=== PATIENT | male | born 1960 | race Caucasian/White ===

== ENCOUNTER 2020-09-21 07:29 | Day surgery (SDC) | payer OTHER ==
[~2020-09-21] VITALS: Ht 193 cm; Wt 79.7 kg
[2020-09-21] VITALS (12 sets, daily range): BP systolic 122–138; BP diastolic 63–88
[2020-09-21] MEDS ORDERED: ONDA4TAB6 PO (08:17)
[2020-09-21] MEDS ORDERED: androgel (08:17)
[2020-09-21] MEDS ORDERED: HYDR50CA5 PO (08:17)
[2020-09-21] MEDS ORDERED: SILD50TA PO (08:17)
[2020-09-21] MEDS ORDERED: cefazolin/dext.iso 2gm/100ml 100 ML IV ONE (08:40)
[2020-09-21] MEDS ORDERED: vancomycin/NS 1 GM ADD-VANTAGE 250 ML X 1 DOSE IV ONE (08:40)
[2020-09-21 08:55] LABS: BASOPHILS % (AUTO) 0.5 % (0-1); EOSINOPHILS # (AUTO) 0.1 X10'3 (0-0.9); EOSINOPHILS % (AUTO) 1.2 % (0-6); HEMATOCRIT 44.2 % (42.0-52.0); HEMOGLOBIN 14.7 g/dl (14.0-17.9); LYMPHOCYTES # (AUTO) 2.9 X10'3 (1.1-4.8); LYMPHOCYTES % (AUTO) 32.4 % (21-51); MEAN CORPUSCULAR HEMOGLOBIN 29.7 PG (27.0-31.0); MEAN CORPUSCULAR HGB CONC 33.4 g/dL (33.0-36.5); MEAN PLATELET VOLUME 8.9 FL (7.4-10.4); MONOCYTES # (AUTO) 0.6 X10'3 (0-0.9); MONOCYTES % (AUTO) 7.1 % (2-12); NEUTROPHILS # (AUTO) 5.3 X10'3 (1.8-7.7); NEUTROPHILS % (AUTO) 58.8 % (42-75); PLATELET COUNT 155 X10'3 (140-440); RED BLOOD COUNT 4.97 X10'6 (4.70-6.10); RED CELL DISTRIBUTION WIDTH 14.6 % (11.5-14.5); WHITE BLOOD COUNT 9.1 X10'3 (4.5-11.0)
[2020-09-21 09:06] LABS: ALBUMIN 3.3 G/DL (3.4-5.0); ANION GAP 8 (8-16); BLOOD UREA NITROGEN 15 MG/DL (7-18); BUN/CREATININE RATIO 18.3 (5.4-32.0); CALCIUM 8.2 MG/DL (8.5-10.1); CHLORIDE 107 MMOL/L (99-107); CREATININE 0.82 MG/DL (0.60-1.10); GLUCOSE 95 MG/DL (70-104); POTASSIUM 4.1 MMOL/L (3.5-5.1); SODIUM 142 MMOL/L (135-145); TOTAL CARBON DIOXIDE 26.9 MMOL/L (24-32); eGFR > 90 ML/MIN
[2020-09-21] MEDS ORDERED: fentaNYL/PF 50MCG/1 ML 2ML syringe ONE ×2 (10:15→11:02)
[2020-09-21] MEDS ORDERED: proCHLORperazine 10 MG/2 ml inj ONE (10:15)
[2020-09-21] MEDS ORDERED: midazolam 1 mg/ML 2ml injection ONE ×2 (10:15→11:02)
[2020-09-21] MEDS ORDERED: vancomycin 1,000mg inj ONE (10:16)
[2020-09-21] MEDS ORDERED: LIDOcaine 1% (10mg/ml)w/preservative injection 20ml MDV ONE (10:17)
[2020-09-21] MEDS ORDERED: heparin 1,000unit/ml 10ml vial 10 ML ONE (10:18)
[2020-09-21] MEDS ORDERED: iohexol 350MG/ML 100ml bottle IV ONE (10:18)
== END 2020-09-21 16:50 | disposition home or self-care (01) ==
LOC: SSTAY O 07:29
PROVIDERS: ATTEND Internal Medicine Cardiovascular Disease
DX: I49.5 Sick sinus syndrome (principal); F41.9 Anxiety disorder, unspecified; Z79.899 Other long term (current) drug therapy; Z98.890 Other specified postprocedural states; F17.210 Nicotine dependence, cigarettes, uncomplicated; Z84.1 Family history of disorders of kidney and ureter; Z82.61 Family history of arthritis; Z82.49 Family history of ischemic heart disease and other diseases of the circulatory system
CPT/HCPCS: 33274; 36415; 80048; 83735; 85025; 85610; 93005; 99152; 99153; C1760; C1786; C1894; J0780; J1644; J2001; J2250; J3010; J3370; J7030; Q9967; A4620; A6258; A6449

== ENCOUNTER 2022-12-23 05:56 | Day surgery (SDC) | payer OTHER ==
[2022-12-23] VITALS (9 sets, daily range): BP systolic 119–141; BP diastolic 70–95; PULSE 62–76; RESP 14–18; TEMP 98; O2SAT 97–100
[~2022-12-23] VITALS: Ht 193 cm; Wt 84.9 kg
[~2022-12-23 05:56] MED LIST: HYDR50CA5 PO; ONDA4TAB6 PO; SILD50TA PO; androgel
[2022-12-23] MEDS ORDERED: IBUP-1984 PO (06:21)
[2022-12-23] MEDS ORDERED: diphenhydrAMINE 25mg capsule PO PRN (06:35)
[2022-12-23] MEDS ORDERED: normal saline 1,000 ML IV SCH (06:35)
[2022-12-23] MEDS ORDERED: sodium bicarbonate 1meq/ml syr 150 ML in dextrose 5%-water 1,000 ML IV SCH (06:45)
[2022-12-23 06:48] LABS: BASOPHILS % (AUTO) 0.5 % (0-1); EOSINOPHILS # (AUTO) 0.2 X10'3 (0-0.9); EOSINOPHILS % (AUTO) 1.7 % (0-6); HEMATOCRIT 46.4 % (42.0-52.0); HEMOGLOBIN 15.5 g/dl (14.0-17.9); LYMPHOCYTES # (AUTO) 3.6 X10'3 (1.1-4.8); LYMPHOCYTES % (AUTO) 39.9 % (21-51); MEAN CORPUSCULAR HEMOGLOBIN 30.3 PG (27.0-31.0); MEAN CORPUSCULAR HGB CONC 33.4 g/dL (33.0-36.5); MEAN CORPUSCULAR VOLUME 90.8 FL (78-98); MEAN PLATELET VOLUME 9.4 FL (7.4-10.4); MONOCYTES # (AUTO) 0.8 X10'3 (0-0.9); MONOCYTES % (AUTO) 8.8 % (2-12); NEUTROPHILS # (AUTO) 4.4 X10'3 (1.8-7.7); NEUTROPHILS % (AUTO) 49.1 % (42-75); PLATELET COUNT 140 X10'3 (140-440); RED BLOOD COUNT 5.11 X10'6 (4.70-6.10); RED CELL DISTRIBUTION WIDTH 14.4 % (11.5-14.5); WHITE BLOOD COUNT 9.1 X10'3 (4.5-11.0)
[2022-12-23 06:55] LABS: PROTHROMBIN TIME 10.4 SECONDS (9.0-12.0)
[2022-12-23 07:16] LABS: ALBUMIN 3.8 G/DL (3.4-5.0); ANION GAP 9 (8-16); BLOOD UREA NITROGEN 14 MG/DL (7-18); BUN/CREATININE RATIO 15.9 (10.0-20.0); CHLORIDE 104 MMOL/L (99-107); CREATININE 0.88 MG/DL (0.60-1.10); GLUCOSE 94 MG/DL (70-104); POTASSIUM 3.7 MMOL/L (3.5-5.1); SODIUM 139 MMOL/L (135-145); TOTAL CARBON DIOXIDE 26.5 MMOL/L (24-32); eCRCL 103 ML/MIN; eGFR 87 ML/MIN
[2022-12-23] MEDS ORDERED: fentaNYL/PF 50MCG/1 ML 2ML syringe ONE (08:00)
[2022-12-23] MEDS ORDERED: midazolam 1 mg/ML 2ml injection ONE ×2 (08:00→09:08)
[2022-12-23] MEDS ORDERED: heparin 1,000unit/ml 10ml vial 10 ML ONE (08:00)
[2022-12-23] MEDS ORDERED: LIDOcaine 1% (10mg/ml)w/preservative inj. 20ml MDV ONE (08:00)
[2022-12-23] MEDS ORDERED: iohexol 350MG/ML 100ml bottle IV ONE ×2 (08:00→09:07)
[2022-12-23] MEDS ORDERED: clopidogrel 300mg tablet ONE (09:54)
[2022-12-23] MEDS ORDERED: HYDROcodone/acetaminophen 10/325mg tab PO PRN (10:35)
[2022-12-23] MEDS ORDERED: HYDROcodone/acetaminophen 5mg/325mg tablet PO PRN (10:35)
[2022-12-23] MEDS ORDERED: ondansetron/PF 4mg/2ml inj IV PRN (10:35)
[2022-12-23] MEDS ORDERED: ibuprofen 200mg tablet PO PRN (10:35)
[2022-12-23] MEDS ORDERED: proCHLORperazine 10 MG/2 ml inj IV PRN (10:35)
== END 2022-12-23 13:45 | disposition home or self-care (01) ==
LOC: SSTAY O 05:56
PROVIDERS: ATTEND Internal Medicine Cardiovascular Disease
DX: I70.213 Atherosclerosis of native arteries of extremities with intermittent claudication, bilateral legs (principal); F41.9 Anxiety disorder, unspecified; Z79.1 Long term (current) use of non-steroidal anti-inflammatories (NSAID); Z79.899 Other long term (current) drug therapy
CPT/HCPCS: 36415; 37221; 37226; 75710; 76937; 80048; 83735; 85025; 85610; 93005; 99152; 99153; C1876; J1644; J2250; J3010; J3490; J7030; Q0163; Q9967; A6258; C1725; C1769; C1894; C2623

== ENCOUNTER 2023-01-16 06:10 | Day surgery (SDC) | payer OTHER ==
[2023-01-16] VITALS (8 sets, daily range): BP systolic 130–155; BP diastolic 68–99; PULSE 56–74; RESP 14–16; TEMP 97.9; O2SAT 94–100
[~2023-01-16] VITALS: Ht 193 cm; Wt 84.5 kg
[~2023-01-16 06:10] MED LIST changes: -HYDR50CA5 PO; +IBUP-1984 PO; +LIDOcaine 1% (10mg/ml)w/preservative inj. 20ml MDV ONE; -ONDA4TAB6 PO; -SILD50TA PO; -androgel; +fentaNYL/PF 50MCG/1 ML 2ML syringe ONE; +heparin 1,000 UNITS/NS 500ml 0 ML ONE; +heparin 1,000unit/ml 10ml vial 0 ML ONE; +iohexol 350MG/ML 100ml bottle IV ONE; +midazolam 1 mg/ML 2ml injection ONE
[2023-01-16] MEDS ORDERED: normal saline 1,000 ML IV SCH (06:40)
[2023-01-16] MEDS ORDERED: sodium bicarbonate 1meq/ml syr 150 ML in dextrose 5%-water 1,000 ML IV SCH (06:40)
[2023-01-16] MEDS ORDERED: diphenhydrAMINE 25mg capsule PO PRN (06:40)
[2023-01-16] MEDS ORDERED: CLOP75TA34 PO (06:42)
[2023-01-16] MEDS ORDERED: ATOR40TA72 PO (06:42)
[2023-01-16 07:10] LABS: BASOPHILS # (AUTO) 0.1 X10'3 (0-0.2); BASOPHILS % (AUTO) 1.4 % (0-1); EOSINOPHILS # (AUTO) 0.2 X10'3 (0-0.9); EOSINOPHILS % (AUTO) 1.9 % (0-6); HEMATOCRIT 46.4 % (42.0-52.0); HEMOGLOBIN 15.4 g/dl (14.0-17.9); LYMPHOCYTES # (AUTO) 3.3 X10'3 (1.1-4.8); LYMPHOCYTES % (AUTO) 32.8 % (21-51); MEAN CORPUSCULAR HEMOGLOBIN 30.1 PG (27.0-31.0); MEAN CORPUSCULAR HGB CONC 33.2 g/dL (33.0-36.5); MEAN CORPUSCULAR VOLUME 90.8 FL (78-98); MEAN PLATELET VOLUME 9.3 FL (7.4-10.4); MONOCYTES # (AUTO) 0.8 X10'3 (0-0.9); MONOCYTES % (AUTO) 7.7 % (2-12); NEUTROPHILS # (AUTO) 5.7 X10'3 (1.8-7.7); NEUTROPHILS % (AUTO) 56.2 % (42-75); PLATELET COUNT 179 X10'3 (140-440); RED BLOOD COUNT 5.11 X10'6 (4.70-6.10); RED CELL DISTRIBUTION WIDTH 14.4 % (11.5-14.5); WHITE BLOOD COUNT 10.1 X10'3 (4.5-11.0)
[2023-01-16 07:20] LABS: ALBUMIN 3.5 G/DL (3.4-5.0); ANION GAP 8 (8-16); BLOOD UREA NITROGEN 12 MG/DL (7-18); BUN/CREATININE RATIO 14.8 (10.0-20.0); CHLORIDE 105 MMOL/L (99-107); CREATININE 0.81 MG/DL (0.60-1.10); GLUCOSE 100 MG/DL (70-104); POTASSIUM 3.9 MMOL/L (3.5-5.1); SODIUM 138 MMOL/L (135-145); TOTAL CARBON DIOXIDE 24.7 MMOL/L (24-32); eCRCL 112 ML/MIN; eGFR > 90 ML/MIN
[2023-01-16 07:22] LABS: PROTHROMBIN TIME 10.8 SECONDS (9.0-12.0)
[2023-01-16] MEDS ORDERED: midazolam 1 mg/ML 2ml injection ONE ×3 (10:20→11:11)
[2023-01-16] MEDS ORDERED: proCHLORperazine 10 MG/2 ml inj ONE (10:20)
[2023-01-16] MEDS ORDERED: fentaNYL/PF 50MCG/1 ML 2ML syringe ONE ×2 (10:44→11:11)
[2023-01-16] MEDS ORDERED: HYDROmorphone 1 mg/ml syringe ONE (11:39)
[2023-01-16] MEDS ORDERED: clopidogrel 300mg tablet ONE (11:48)
[2023-01-16] MEDS ORDERED: HYDROcodone/acetaminophen 10/325mg tab PO PRN (12:25)
[2023-01-16] MEDS ORDERED: ondansetron/PF 4mg/2ml inj IV PRN (12:25)
[2023-01-16] MEDS ORDERED: HYDROcodone/acetaminophen 5mg/325mg tablet PO PRN (12:25)
[2023-01-16] MEDS ORDERED: proCHLORperazine 10 MG/2 ml inj IV PRN (12:25)
[2023-01-16] MEDS ORDERED: normal saline 1000ml 1,000 ML IV SCH (12:25)
[2023-01-16] MEDS ORDERED: ketorolac tromethamine 15mg/ml inj. IV ONE (13:35)
== END 2023-01-16 15:30 | disposition home or self-care (01) ==
LOC: SSTAY O 06:10
PROVIDERS: ATTEND Internal Medicine Cardiovascular Disease
DX: I70.211 Atherosclerosis of native arteries of extremities with intermittent claudication, right leg (principal); I70.92 Chronic total occlusion of artery of the extremities; I10 Essential (primary) hypertension; F41.9 Anxiety disorder, unspecified; Z79.82 Long term (current) use of aspirin; Z79.01 Long term (current) use of anticoagulants; Z79.899 Other long term (current) drug therapy; Z95.0 Presence of cardiac pacemaker; Z87.891 Personal history of nicotine dependence
CPT/HCPCS: 36415; 37246; 75710; 80048; 85025; 85610; 93005; 99152; 99153; C1876; J0780; J1170; J1885; J2250; J3010; J7030; Q0163; Q9967; 36245; 96360; A6258; A6402; C1725; C1760; C1769; C1894; C2623; J1644; J3490

== ENCOUNTER 2023-01-19 18:12 | Emergency (ER) | payer OTHER ==
[~2023-01-19] VITALS: Ht 193 cm; Wt 84.8 kg
[~2023-01-19 18:12] MED LIST changes: +ATOR40TA72 PO; +CLOP75TA34 PO; -LIDOcaine 1% (10mg/ml)w/preservative inj. 20ml MDV ONE; -fentaNYL/PF 50MCG/1 ML 2ML syringe ONE; -heparin 1,000 UNITS/NS 500ml 0 ML ONE; -heparin 1,000unit/ml 10ml vial 0 ML ONE; -iohexol 350MG/ML 100ml bottle IV ONE; -midazolam 1 mg/ML 2ml injection ONE
[2023-01-19 18:25] VITALS: BP 133/67; PULSE 86; TEMP 98.5; O2SAT 97
[2023-01-19 19:30] LABS: BASOPHILS % (AUTO) 0.3 % (0-1); EOSINOPHILS # (AUTO) 0.1 X10'3 (0-0.9); EOSINOPHILS % (AUTO) 1.2 % (0-6); HEMATOCRIT 42.5 % (42.0-52.0); HEMOGLOBIN 14.3 g/dl (14.0-17.9); LYMPHOCYTES # (AUTO) 2.5 X10'3 (1.1-4.8); LYMPHOCYTES % (AUTO) 25.3 % (21-51); MEAN CORPUSCULAR HEMOGLOBIN 30.4 PG (27.0-31.0); MEAN CORPUSCULAR HGB CONC 33.6 g/dL (33.0-36.5); MEAN CORPUSCULAR VOLUME 90.5 FL (78-98); MEAN PLATELET VOLUME 8.7 FL (7.4-10.4); MONOCYTES # (AUTO) 1.1 X10'3 (0-0.9); MONOCYTES % (AUTO) 11.2 % (2-12); NEUTROPHILS # (AUTO) 6.1 X10'3 (1.8-7.7); PLATELET COUNT 152 X10'3 (140-440); RED BLOOD COUNT 4.69 X10'6 (4.70-6.10); RED CELL DISTRIBUTION WIDTH 14.4 % (11.5-14.5); WHITE BLOOD COUNT 9.9 X10'3 (4.5-11.0)
[2023-01-19 19:39] LABS: PROTHROMBIN TIME 10.9 SECONDS (9.0-12.0)
[2023-01-19 19:41] LABS: ALANINE AMINOTRANSFERASE 22 U/L (12-78); ALBUMIN 3.3 G/DL (3.4-5.0); ALBUMIN/GLOBULIN RATIO 0.9 (1.1-1.5); ALKALINE PHOSPHATASE 143 IU/L (46-116); ANION GAP 8 (8-16); ASPARTATE AMINO TRANSFERASE 16 U/L (10-37); BILIRUBIN,TOTAL 0.5 MG/DL (0.1-1.0); BLOOD UREA NITROGEN 12 MG/DL (7-18); BUN/CREATININE RATIO 14.1 (10.0-20.0); CALCIUM 8.8 MG/DL (8.5-10.1); CHLORIDE 103 MMOL/L (99-107); CREATININE 0.85 MG/DL (0.60-1.10); GLUCOSE 114 MG/DL (70-104); LIPASE 29 U/L (16-77); POTASSIUM 3.9 MMOL/L (3.5-5.1); SODIUM 139 MMOL/L (135-145); TOTAL CARBON DIOXIDE 27.6 MMOL/L (24-32); TOTAL PROTEIN 6.9 G/DL (6.4-8.2); eCRCL 107 ML/MIN; eGFR > 90 ML/MIN
[2023-01-19] MEDS ORDERED: iohexol 350MG/ML 100ml bottle IV ONE (19:53)
[2023-01-19] MEDS ORDERED: iohexol 350 MG/ML 50ML vial IV ONE (19:53)
[2023-01-19] MEDS ORDERED: acetaminophen 325mg tablet PO ONE (21:30)
[2023-01-19] MEDS ORDERED: OXYC-145 PO (23:44)
[2023-01-19] MEDS ORDERED: oxyCODONE/APAP 5-325mg tablet PO ONE ×2 (23:45→23:50)
[2023-01-20 00:05] VITALS: RESP 20
== END 2023-01-20 00:07 | disposition home or self-care (01) ==
LOC: ER 18:12
DX: G89.18 Other acute postprocedural pain (principal); M79.604 Pain in right leg; Z79.899 Other long term (current) drug therapy; Z79.1 Long term (current) use of non-steroidal anti-inflammatories (NSAID)
CPT/HCPCS: 36415; 75635; 80053; 83690; 85025; 85610; 93922; 93971; 99285; J3490; Q9967